=== PATIENT | male | born 1950 | race Caucasian/White ===

== ENCOUNTER → 2017-12-07 | Outpatient (CLI) | payer OTHER ==
--- NOTE | ~2017-12-07 | EXE ---
[facility] [place] [address] STRESS ECHOCARDIOGRAM Name: NO SEGOVIA Room #: REG [facility]#: [id number] Admission: 12/07/17 Attend Phys: Anil Helton MD Discharge: Date of : 48 Date of Service: 12/07/17 1539 Report #: [id number] THIS REPORT FOR: //name// APPROVED REPORT Study performed: 12/07/2017 14:18:38 Exam: Stress Echocardiogram Indication: murmur Patient Location: Out-Patient Stress Nurse: Katherine Chowdhury RN Status: routine Ht: 5 ft 10 in HR: 57 bpm BP: 148/88 mmHg Rhythm: NSR Medical History Medications: Listed on worksheet Allergies: No known drug allergies Cardiac Risk Factors: HTN, Hyperlipidemia Procedure The patient underwent an Exercise Stress Test using the Raffy Protocol. Blood pressure, heart rate, and EKG were monitored. An Echocardiogram was performed by ski technician in four stages in quad fashion. At peak stress, four selected images were obtained and placed side by side with resting images for comparison. Stress Test Details Stress Test: Exercise stress testing was performed using a Raffy protocol. HR Resting HR: 57 bpm Max Heart Rate (APMHR): 152 bpm Max HR Achieved: 155 bpm Target HR (85% APMHR): 129 bpm % of APMHR: 101 Recovery HR: 80 bpm HR response to stress: Normal HR response to stress BP Resting BP: 148/78 mmHg Max BP: 158/90 mmHg Recovery BP: 138/90 mmHg ECG [facility] [address] [place] [address] STRESS ECHOCARDIOGRAM Name: NO SEGOVIA JOSE ALBERTO Room #: REG CL [facility]#: [id number] Admission: 12/07/17 Attend Phys: Anil Helton MD Discharge: Date of : 48 Date of Service: 12/07/17 1539 Report #: [id number] Resting ECG: Sinus Rhythm Stress ECG: Sinus Rhythm, nonspecific ST-T abnormalities ST Change: Non-ischemic Clinical Reason for Termination: Completed protocol Exercise duration: 9 min 21 sec Highest Stage Achieved: Stage 4: 4.2 mph at 16% grade. Exercise capacity: 11.1 METs Pre-Stress Echo The resting Echocardiogram showed normal left ventricular contractility with an estimated Ejection Fraction of about 55-60%. Normal wall motion in all segments on baseline images. Post-Stress Echo The stress Echocardiogram showed normal left ventricular contractility with an estimated Ejection Fraction of about >70%. Normal augmentation of wall motion in all segments on post stress images. Clinical No clinical or ECG evidence for ischemia. Conclusion Clinical Response: Non-ischemic Exercise Capacity: Above average Stress ECG Response: Non-ischemic Stress Echo Images: Non-ischemic The left ventricle is normal in size and wall thickness in both the rest and stress images. Other Information Study Quality: Good Technically limited study due to lung artifact post exercise.. <Conclusion> The left ventricle is normal in size and wall thickness in both the rest and stress images. <ELECTRONICALLY SIGNED> By: Anil Helton MD 12/07/17 1539 [id number] Anil Helton MD /INF
--- NOTE | ~2017-12-07 | 2DMMODE ---
[facility] [place] [place] [address] 2 D/M-MODE ECHOCARDIOGRAM Name: NO SEGOVIA JOSE ALBERTO Room #: REG [facility]#: [id number] Admission: 12/07/17 Attend Phys: Anil Helton MD Discharge: Date of : 48 Date of Service: 12/07/17 1534 Report #: [id number] THIS REPORT FOR: //name// APPROVED REPORT Study performed: 12/07/2017 13:10:30 EXAM: Comprehensive 2D, Doppler, and color-flow Echocardiogram Status: routine BSA: 1.89 HR: 57 bpm BP: 148/88 mmHg Rhythm: NSR Other Information Study Quality: Good Indications Murmur. Hx: HTN, HLP 2D Dimensions RVDd: 33.87 mm IVSd: 10.59 (7-11mm) LVOT Diam: 21.20 (18-24mm) LVDd: 49.08 mm PWd: 10.55 (7-11mm) Ascending Ao: 33.18 (22-36mm) LVDs: 34.77 (25-40mm) Aortic Root: 36.77 mm Volumes Left Atrial Volume (Systole) Single Plane 4CH: 51.99 mL Single Plane 2CH: 68.34 mL LA ESV Index: 34.00 mL/m2 Aortic Valve AoV Peak Yamil.: 2.15 m/s AO Peak Gr.: 18.42 mmHg LVOT Max P.41 mmHg AO Mean Gr.: 10.38 mmHg AO V2 Mean: 1.54 m/s LVOT Max V: 0.92 m/s AO V2 VTI: 47.69 cm JANKI Vmax: 1.52 cm2 Mitral Valve E/A Ratio: 0.7 MV Decel. Time: 457.57 ms [facility] [place] [address] 2 D/M-MODE ECHOCARDIOGRAM Name: NO SEGOVIA Room #: REG [facility]#: [id number] Admission: 12/07/17 Attend Phys: Anil Helton MD Discharge: Date of : 48 Date of Service: 12/07/17 1534 Report #: [id number] MV E Max Yamil.: 0.49 m/s MV A Yamil.: 0.66 m/s MV PHT: 132.70 ms IVRT: 96.89 ms Pulmonary Valve PV Peak Yamil.: 1.04 m/s PV Peak Gr.: 4.31 mmHg Pulmonary Vein P Vein S: 0.48 m/s P Vein A: 0.31 m/s P Vein D: 0.38 m/s P Vein A Dur.: 106.1 msec P Vein S/D Ratio: 1.26 Tricuspid Valve TR Peak Yamil.: 2.00 m/s RAP Estimate: 5.00 mmHg TR Peak Gr.: 16.02 mmHg PA Pressure: 22.00 mmHg Left Ventricle The left ventricle is normal size. There is normal LV segmental wall motion. There is normal left ventricular wall thickness. Left ventricular systolic function is normal. LVEF is 55-60%. Mild diastolic dysfunction is present (impaired relaxation pattern). Right Ventricle The right ventricle is normal size. The right ventricular systolic function is normal. Atria Left atrium is at the upper limits of normal. The right atrium size is normal. Aortic Valve Aortic valve is mild to moderately calcified. Trace aortic regurgitation. There is mild valvular aortic stenosis. Maximum pressure gradient of 18 mmHg and mean pressure gradient of 10 mmHg. Mitral Valve The mitral valve is normal in structure. Trace mitral regurgitation. No evidence of mitral valve stenosis. Tricuspid Valve The tricuspid valve is normal in structure. Trace tricuspid regurgitation. Estimated PAP is 20-25mmHg. [address] [address] 2 D/M-MODE ECHOCARDIOGRAM Name: NO SEGOVIA JOSE ALBERTO Room #: REG CL [facility]#: [id number] Admission: 12/07/17 Attend Phys: Anil Helton MD Discharge: Date of : 48 Date of Service: 12/07/17 1534 Report #: [id number] Pulmonic Valve The pulmonary valve is normal in structure. Mild pulmonic regurgitation. Great Vessels The aortic root is normal in size. The ascending aorta is normal in size. IVC is normal in size and collapses >50% with inspiration. Pericardium There is no pericardial effusion. <Conclusion> The left ventricle is normal size. There is normal left ventricular wall thickness. Left ventricular systolic function is normal. Mild diastolic dysfunction is present (impaired relaxation pattern). The right ventricle is normal size. Left atrium is at the upper limits of normal. Aortic valve is mild to moderately calcified. There is mild valvular aortic stenosis. Trace mitral regurgitation. Trace tricuspid regurgitation. Estimated PAP is 20-25mmHg. <ELECTRONICALLY SIGNED> By: Anil Helton MD 12/07/17 1534 1534 1534 Anil Helton MD /INF
== END ==
LOC: CV 07:54
DX: I37.1 Nonrheumatic pulmonary valve insufficiency (principal); I35.8 Other nonrheumatic aortic valve disorders; I35.0 Nonrheumatic aortic (valve) stenosis; I34.0 Nonrheumatic mitral (valve) insufficiency; E78.5 Hyperlipidemia, unspecified; I10 Essential (primary) hypertension

== ENCOUNTER → 2017-12-12 | Outpatient (CLI) | payer OTHER | LOC: ULTRA 07:38 | DX: Z13.9 Encounter for screening, unspecified (principal); E78.5 Hyperlipidemia, unspecified; I10 Essential (primary) hypertension; R01.1 Cardiac murmur, unspecified; R09.89 Other specified symptoms and signs involving the circulatory and respiratory systems; F17.201 Nicotine dependence, unspecified, in remission; Z82.49 Family history of ischemic heart disease and other diseases of the circulatory system ==

== ENCOUNTER → 2018-12-06 | Outpatient (CLI) | payer OTHER ==
--- NOTE | 2018-12-06 09:55 | 2DMMODE ---
[facility] [email or web address] [address] 2 D/M-MODE ECHOCARDIOGRAM Name: NO SEGOVIA JOSE ALBERTO Room #: REG [facility]#: [id number] Admission: 12/06/18 Attend Phys: Anil Helton MD Discharge: Date of : 48 Report #: [id number] THIS REPORT FOR: //name// APPROVED REPORT Study performed: 12/06/2018 09:08:27 EXAM: Comprehensive 2D, Doppler, and color-flow Echocardiogram Patient Location: Echo lab Status: routine BSA: 1.89 HR: 58 bpm BP: 160/72 mmHg Rhythm: NSR Other Information Study Quality: Good Indications Hypertension/HDD HLD 2D Dimensions RVDd: 26.52 mm IVSd: 10.25 (7-11mm) LVOT Diam: 20.59 (18-24mm) LVDd: 49.79 mm PWd: 9.29 (7-11mm) Ascending Ao: 29.49 (22-36mm) LVDs: 30.97 (25-40mm) Aortic Root: 33.00 mm IVC: 19.00 mm Volumes Left Atrial Volume (Systole) Single Plane 4CH: 62.29 mL Single Plane 2CH: 61.93 mL LA ESV Index: 34.00 mL/m2 Aortic Valve AoV Peak Yamil.: 2.26 m/s AO Peak Gr.: 20.47 mmHg LVOT Max P.71 mmHg AO Mean Gr.: 10.73 mmHg LVOT Mean P.48 mmHg AO V2 Mean: 1.52 m/s LVOT Max V: 0.96 m/s AO V2 VTI: 52.09 cm LVOT Mean V: 0.53 m/s JANKI (VTI): 1.48 cm2 LVOT V1 VTI: 23.11 cm JANKI Vmax: 1.42 cm2 SV (LVOT): 76.92 mL [facility] [place] [place] [address] 2 D/M-MODE ECHOCARDIOGRAM Name: NO SEGOVIA Room #: REG CL [facility]#: [id number] Admission: 12/06/18 Attend Phys: Anil Helton MD Discharge: Date of : 48 Report #: [id number] Mitral Valve E/A Ratio: 0.9 MV Decel. Time: 326.45 ms MV E Max Yamil.: 0.56 m/s MV A Yamil.: 0.63 m/s MV PHT: 94.67 ms IVRT: 119.95 ms Pulmonary Valve PV Peak Yamil.: 1.08 m/s PV Peak Gr.: 4.67 mmHg Pulmonary Vein P Vein S: 0.53 m/s P Vein A: 0.32 m/s P Vein D: 0.52 m/s P Vein A Dur.: 175.3 msec P Vein S/D Ratio: 1.02 Tricuspid Valve TR Peak Yamil.: 2.21 m/s RAP Estimate: 5.00 mmHg TR Peak Gr.: 19.47 mmHg PA Pressure: 25.00 mmHg Left Ventricle The left ventricle is normal size. There is normal left ventricular wall thickness. The left ventricular systolic function is normal. The left ventricular ejection fraction is within the normal range. LVEF is 60%. Right Ventricle The right ventricle is normal size. The right ventricular systolic function is normal. Atria Left atrium is at the upper limits of normal. Right atrium is at the upper limits of normal. Aortic Valve Aortic valve is mild to moderately calcified. Trace aortic regurgitation. There is mild valvular aortic stenosis. Calculated aortic valve area is 1.5 cm2 with maximum pressure gradient of 20 mmHg and mean pressure gradient of 11 mmHg. Mitral Valve The mitral valve is normal in structure. Trace mitral regurgitation. No evidence of mitral valve stenosis. [facility] [address] [place] [address] 2 D/M-MODE ECHOCARDIOGRAM Name: NO SEGOVIA Room #: REG CL [facility]#: [id number] Admission: 12/06/18 Attend Phys: Anil Helton MD Discharge: Date of : 48 Report #: [id number] Tricuspid Valve The tricuspid valve is normal in structure. Trace tricuspid regurgitation. PAP is estimated at 25 mmHg. Pulmonic Valve The pulmonary valve is normal in structure. Mild to moderate pulmonic regurgitation. Great Vessels The aortic root is normal in size. IVC is normal in size and collapses >50% with inspiration. Pericardium There is no pericardial effusion. <Conclusion> The left ventricle is normal size. There is normal left ventricular wall thickness. The left ventricular systolic function is normal. The right ventricle is normal size. Left atrium is at the upper limits of normal. There is mild valvular aortic stenosis. Trace mitral regurgitation. Trace tricuspid regurgitation. PAP is estimated at 25 mmHg. <ELECTRONICALLY SIGNED> By: Anil Helton MD 12/06/1855 4 4 Anil Helton MD /INF
== END ==
LOC: CV 08:54
DX: I08.8 Other rheumatic multiple valve diseases (principal); I10 Essential (primary) hypertension; E78.5 Hyperlipidemia, unspecified

== ENCOUNTER → 2019-12-05 | Outpatient (CLI) | payer OTHER | LOC: CAT 10:35 | PROVIDERS: ATTEND Internal Medicine Cardiovascular Disease | DX: Z13.6 Encounter for screening for cardiovascular disorders (principal); E78.00 Pure hypercholesterolemia, unspecified; I25.10 Atherosclerotic heart disease of native coronary artery without angina pectoris ==

== ENCOUNTER → 2019-12-05 | Outpatient (CLI) | payer OTHER | LOC: SJCVCIMAG 08:58 | PROVIDERS: ATTEND Internal Medicine Cardiovascular Disease | DX: I08.8 Other rheumatic multiple valve diseases (principal); I10 Essential (primary) hypertension; E78.00 Pure hypercholesterolemia, unspecified; F17.200 Nicotine dependence, unspecified, uncomplicated; Z79.899 Other long term (current) drug therapy ==

== ENCOUNTER → 2020-12-04 | Outpatient (CLI) | payer OTHER | LOC: SJCVCIMAG 07:44 | PROVIDERS: ATTEND Internal Medicine Cardiovascular Disease | DX: I08.2 Rheumatic disorders of both aortic and tricuspid valves (principal); R00.1 Bradycardia, unspecified; I25.10 Atherosclerotic heart disease of native coronary artery without angina pectoris; I10 Essential (primary) hypertension; E78.00 Pure hypercholesterolemia, unspecified; I35.0 Nonrheumatic aortic (valve) stenosis; Z79.82 Long term (current) use of aspirin; Z79.899 Other long term (current) drug therapy; Z72.89 Other problems related to lifestyle ==